=== PATIENT | female | born 1985 | race African-American/Black ===

== ENCOUNTER 2024-01-13 19:14 | Inpatient (IN) | payer OTHER ==
[~2024-01-13] VITALS: Ht 157.5 cm; Wt 49.9 kg
[2024-01-13 20:47] LABS: BASOPHILS % (AUTO) 0.5 % (0.0-2.0); EOSINOPHILS % (AUTO) 0.2 % (0.0-7.0); HEMATOCRIT 33.7 % (31.2-41.9); HEMOGLOBIN 11.7 g/dL (10.9-14.3); LYMPHOCYTES # (AUTO) 1.6 K/uL (0.8-4.8); LYMPHOCYTES % (AUTO) 19.7 % (20.5-51.5); MEAN CORPUSCULAR HEMOGLOBIN 31.5 uug (24.7-32.8); MEAN CORPUSCULAR HGB CONC 35 g/dL (32.3-35.6); MEAN CORPUSCULAR VOLUME 90.5 fL (75.5-95.3); MONOCYTES # (AUTO) 0.3 K/uL (0.1-1.30); MONOCYTES % (AUTO) 3.7 % (0.0-11.0); NEUTROPHILS # (AUTO) 6.2 K/uL (1.8-8.9); NEUTROPHILS % (AUTO) 75.9 % (38.5-71.5); PLATELET COUNT (AUTO) 409 K/uL (179-408); RED BLOOD CELL COUNT(AUTO) 3.73 MIL/uL (3.63-4.92); RED CELL DISTRIBUTION WIDTH 14.2 % (12.3-17.7); WHITE BLOOD COUNT (AUTO) 8.1 K/uL (3.8-11.8)
[2024-01-13 21:03] LABS: BILIRUBIN,TOTAL 0.7 mg/dL (0.2-1.0); CALCIUM 9.8 mg/dL (8.5-10.1); CREATININE 0.9 mg/dL (0.6-1.3); POTASSIUM 4.1 mmol/L (3.5-5.1); TOTAL PROTEIN, SERUM 8.3 g/dL (6.4-8.2)
[2024-01-13 21:07] LABS: DIFFERENTIAL COMMENT 1
[2024-01-13] MEDS ORDERED: METO5TAB7 PO (21:39)
[2024-01-13] MEDS ORDERED: BUME2TAB8 PO (21:39)
[2024-01-13] MEDS ORDERED: HYDR-4209 PO (21:39)
[2024-01-13] MEDS ORDERED: INSU3INS6 SQ (21:39)
[2024-01-13] MEDS ORDERED: EMPA10TA PO (21:39)
[2024-01-13] MEDS ORDERED: WARF-68 PO ×2 (21:39)
[2024-01-13] MEDS ORDERED: CALC355O18 PO (21:39)
[2024-01-13] MEDS ORDERED: METH-806 PO (21:39)
[2024-01-13] MEDS ORDERED: AMMO225L7 TP (21:39)
[2024-01-13] MEDS ORDERED: WARF-58 PO (21:39)
[2024-01-13] MEDS ORDERED: RIOC2.5T PO (21:39)
[2024-01-13] MEDS ORDERED: ASPI81TA31 PO (21:39)
[2024-01-13] MEDS ORDERED: GABA-536 PO (21:39)
[2024-01-13] MEDS ORDERED: FERR325T23 PO (21:39)
[2024-01-13] MEDS ORDERED: ERGO500040 PO (21:39)
[2024-01-13] MEDS ORDERED: DOCU100C36 PO (21:39)
[2024-01-13] MEDS ORDERED: INSU100I26 SQ (21:39)
[2024-01-13] MEDS ORDERED: MACI10TA PO (21:39)
[2024-01-13] MEDS ORDERED: GLUC3SPR NS (21:39)
[2024-01-13] MEDS ORDERED: POTA-88 PO (21:39)
[2024-01-13] MEDS ORDERED: INSU100I34 SQ ×2 (21:39)
[2024-01-13] MEDS ORDERED: ENOX60DI8 SQ (21:39)
[2024-01-13] MEDS ORDERED: PANTOPRAZOLE SODIUM 40 MG VIAL ONE (22:21)
[2024-01-13] MEDS: PANTOPRAZOLE SODIUM 40 MG VIAL IV ONE (22:26)
[2024-01-13 23:10] LABS: *BLOOD, URINE 3+ (NEGATIVE); *COLOR,URINE RED (YELLOW); *KETONES,URINE 4+ (NEGATIVE); LEUKOCYTE ESTERASE ,URINE 3+ (NEGATIVE); NITRITE, URINE POSITIVE (NEGATIVE)
[2024-01-13 23:15] LABS: *BILIRUBIN,URIN 3+ (NEGATIVE); *PROTEIN,URINE 3+ (NEGATIVE); UGLUCOSE 3+ (NEGATIVE)
[2024-01-13 23:17] LABS: *URINE HCG, QUAL NEGATIVE (NEGATIVE)
[2024-01-13 23:29] LABS: *AMPHETAMINE, URINE POSITIVE (NEGATIVE); *BARBITURATE, URINE NEGATIVE (NEGATIVE); *BENZODIAZEPINE, URINE NEGATIVE (NEGATIVE); *CANNABINOID, URINE POSITIVE (NEGATIVE); *COCCAINE, URINE NEGATIVE (NEGATIVE); *OPIATE, URINE NEGATIVE (NEGATIVE); *PHENCYCLIDINE SCREEN,URINE NEGATIVE (NEGATIVE)
[2024-01-13 23:34] LABS: FENTANYL, URINE NEGATIVE (NEGATIVE)
[2024-01-14 00:08] LABS: *CLARITY,URINE CLOUDY (CLEAR); BACTERIA,URINE MANY /HPF (NONE SEEN); RBC,URINE TNTC /HPF (0-3); SQUAMOUS EPITHELIAL CELL,UR FEW /HPF (NONE SEEN); WBC,URINE TNTC /HPF (0-3)
[2024-01-14] MEDS ORDERED: KETOROLAC TROMETHAMINE 30 MG INJ ONE (00:45)
[2024-01-14] MEDS ORDERED: ONDANSETRON 4 MG/2 ML VIAL ONE (00:45)
[2024-01-14] MEDS: ONDANSETRON 4 MG/2 ML VIAL IV ONE (00:54)
[2024-01-14] MEDS: KETOROLAC TROMETHAMINE 30 MG INJ IVP ONE (00:54)
[2024-01-14] MEDS ORDERED: PHYTONADIONE 10 MG/1 ML AMPUL ONE (05:14)
[2024-01-14] MEDS: PHYTONADIONE 10 MG/1 ML AMPUL IM ONE (05:21)
[2024-01-14] MEDS ORDERED: DEXTROSE 50% 50 ML DISP.SYRIN IV PRN (05:45)
[2024-01-14] MEDS ORDERED: METHOCARBAMOL 500 MG TABLET PO SCH (07:00)
[2024-01-14] MEDS ORDERED: HYDROCODONE/APAP 5-325MG TABLET PO SCH (07:00)
[2024-01-14] MEDS ORDERED: GABAPENTIN 400 MG CAPSULE PO SCH (07:00)
[2024-01-14] MEDS ORDERED: Medication Not On Formulary EA (Calcium Carb/Mag Hydrox/Simeth (Mylanta Tonight 800-270- PO SCH (07:00)
[2024-01-14 07:47] LABS: HEMATOCRIT 30.1 % (31.2-41.9); HEMOGLOBIN 10.6 g/dL (10.9-14.3)
[2024-01-14] MEDS: BLOOD SUGAR DIAGNOSTIC 1 EACH STRIP VI SCH (08:26)
[2024-01-14] MEDS ORDERED: INSULIN NPH 1,000 UNITS/10 ML VIAL SQ ONE (08:30)
[2024-01-14] MEDS: INSULIN REGULAR, HUMAN 300 UNIT/3 ML VIAL SQ PRN (08:35)
[2024-01-14] MEDS ORDERED: RIOCIGUAT 2.5 MG PO SCH (09:00)
[2024-01-14] MEDS ORDERED: Medication Not On Formulary EA (Bumetanide 2 MG) PO SCH (09:00)
[2024-01-14] MEDS ORDERED: Empagliflozin (Jardiance) 10 MG) PO SCH (09:00)
[2024-01-14 09:30] VITALS: BP 120/71; TEMP 97.5; O2SAT 93
[2024-01-14] MEDS: PANTOPRAZOLE SODIUM 40 MG VIAL IV SCH (09:40)
[2024-01-14] MEDS: DOCUSATE SODIUM 100 MG CAPSULE PO SCH (09:41)
[2024-01-14] MEDS: ACETAMINOPHEN 325 MG TABLET PO PRN (09:41)
[2024-01-14] MEDS ORDERED: WARF4TAB72 PO (10:03)
[2024-01-14] MEDS ORDERED: WARF-58 PO (10:03)
[2024-01-14] MEDS ORDERED: MAG HYDROX/AL HYDROX/SIMETH 30 ML LIQUID UDC PO PRN (10:15)
[2024-01-14] MEDS: AMMONIUM LACTATE 12% LOTION 225 GM BOTTLE TP SCH (10:27)
[2024-01-14] MEDS: OPSUMIT 10 MG PO SCH (10:27)
[2024-01-14] MEDS: ADEMPAS 2.5 MG PO SCH (10:27)
[2024-01-14] MEDS: BUMETANIDE 1 MG TABLET PO SCH (10:30)
[2024-01-14 13:03] LABS: THYROID STIMULATING HORMONE 0.86 mIU/mL (0.358-3.740)
[2024-01-14] MEDS: CEFTRIAXONE 1 G in IV DEXTROSE 5% 50 ML IV SCH (13:13)
[2024-01-14 15:00] VITALS: BP 76/42; TEMP 97.7; O2SAT 98
[2024-01-14 15:10] LABS: HEMATOCRIT 25.7 % (31.2-41.9); HEMOGLOBIN 9.1 g/dL (10.9-14.3)
[2024-01-14] MEDS ORDERED: IOHEXOL 300MG/ML 100 ML INFUS..BTL ONE (16:46)
[2024-01-14] MEDS ORDERED: SWABABLE VALVE TRANSFER SET EA MC ONE (16:46)
[2024-01-14] MEDS ORDERED: IV NORMAL SALINE 250 ML IV ONE (16:47)
[2024-01-14] MEDS: POTASSIUM CHLORIDE 20 MEQ TAB.PRT.SR PO SCH (17:32)
[2024-01-14 18:00] VITALS: BP 84/49; TEMP 97.7; O2SAT 94
[2024-01-14] MEDS: MAGNESIUM HYDROXIDE 30 ML LIQUID UDC PO PRN (20:13)
[2024-01-14 21:12] LABS: BASOPHILS # (AUTO) 0.1 K/UL (0.0-0.2); BASOPHILS % (AUTO) 0.6 % (0.0-2.0); EOSINOPHILS # (AUTO) 0.1 K/uL (0.0-0.7); HEMATOCRIT 27.9 % (31.2-41.9); HEMOGLOBIN 9.8 g/dL (10.9-14.3); LYMPHOCYTES # (AUTO) 2.1 K/uL (0.8-4.8); LYMPHOCYTES % (AUTO) 24.1 % (20.5-51.5); MEAN CORPUSCULAR HEMOGLOBIN 32.1 uug (24.7-32.8); MEAN CORPUSCULAR HGB CONC 35 g/dL (32.3-35.6); MEAN CORPUSCULAR VOLUME 91.9 fL (75.5-95.3); MONOCYTES # (AUTO) 0.7 K/uL (0.1-1.30); MONOCYTES % (AUTO) 7.8 % (0.0-11.0); NEUTROPHILS # (AUTO) 5.7 K/uL (1.8-8.9); NEUTROPHILS % (AUTO) 66.5 % (38.5-71.5); PLATELET COUNT (AUTO) 357 K/uL (179-408); RED BLOOD CELL COUNT(AUTO) 3.04 MIL/uL (3.63-4.92); RED CELL DISTRIBUTION WIDTH 14.2 % (12.3-17.7); WHITE BLOOD COUNT (AUTO) 8.6 K/uL (3.8-11.8)
[2024-01-14 21:17] LABS: DIFFERENTIAL COMMENT 1
[2024-01-14 23:16] VITALS: BP 73/39
[2024-01-14] MEDS: IV NS 1000 ML 1,000 ML IV ONE (23:45)
[2024-01-15] VITALS (10 sets, daily range): BP systolic 75–88; BP diastolic 39–53; TEMP 97.4–98.4; O2SAT 95–100
[2024-01-15] MEDS: IV NS 1000 ML 1,000 ML IV PRN (00:58)
[2024-01-15] MEDS: [UNRECOGNIZED DRUG - OTHER] PO SCH (08:25)
[2024-01-15] MEDS: JARDIANCE 10 MG PO SCH (08:25)
[2024-01-15 08:28] LABS: CALCIUM 6.9 mg/dL (8.5-10.1); CREATININE 0.7 mg/dL (0.6-1.3); PHOSPHOROUS 2.5 mg/dL (2.5-4.9); POTASSIUM 3.7 mmol/L (3.5-5.1)
[2024-01-15 08:37] LABS: BASOPHILS % (AUTO) 0.4 % (0.0-2.0); EOSINOPHILS # (AUTO) 0.1 K/uL (0.0-0.7); EOSINOPHILS % (AUTO) 1.5 % (0.0-7.0); LYMPHOCYTES # (AUTO) 1.5 K/uL (0.8-4.8); LYMPHOCYTES % (AUTO) 22.7 % (20.5-51.5); MEAN CORPUSCULAR HGB CONC 36 g/dL (32.3-35.6); MEAN CORPUSCULAR VOLUME 90.1 fL (75.5-95.3); MONOCYTES # (AUTO) 0.3 K/uL (0.1-1.30); MONOCYTES % (AUTO) 4.9 % (0.0-11.0); NEUTROPHILS # (AUTO) 4.6 K/uL (1.8-8.9); NEUTROPHILS % (AUTO) 70.5 % (38.5-71.5); PLATELET COUNT (AUTO) 295 K/uL (179-408); RED CELL DISTRIBUTION WIDTH 14.2 % (12.3-17.7); WHITE BLOOD COUNT (AUTO) 6.5 K/uL (3.8-11.8)
[2024-01-15 08:41] LABS: HEMATOCRIT 20.6 % (31.2-41.9); HEMOGLOBIN 7.3 g/dL (10.9-14.3); RED BLOOD CELL COUNT(AUTO) 2.29 MIL/uL (3.63-4.92)
[2024-01-15 10:07] LABS: *IMMUNOGLOBULIN G, SERUM 959 mg/dL (586-1602); IMMUNOGLOBULIN A, SERUM 333 mg/dL (87-352); IMMUNOGLOBULIN M, SERUM 119 mg/dL (26-217)
[2024-01-15] MEDS ORDERED: GADOTERATE MEGLUMINE 5 MMOL/10 ML VIAL IV ONE (15:34)
[2024-01-15] MEDS: HEPARIN SODIUM,PORCINE 5,000 UNITS/ML VIAL SQ SCH (16:59)
[2024-01-16 06:00] VITALS: BP 90/48; TEMP 97.9; O2SAT 96
[2024-01-16] MEDS: PANTOPRAZOLE SODIUM 40 MG TABLET.DR PO SCH (06:35)
[2024-01-16 07:51] VITALS: BP 89/47; TEMP 98.3; O2SAT 95
[2024-01-16 08:12] LABS: BASOPHILS % (AUTO) 0.3 % (0.0-2.0); EOSINOPHILS # (AUTO) 0.1 K/uL (0.0-0.7); EOSINOPHILS % (AUTO) 1.1 % (0.0-7.0); HEMATOCRIT 25.8 % (31.2-41.9); HEMOGLOBIN 9.1 g/dL (10.9-14.3); LYMPHOCYTES # (AUTO) 1.6 K/uL (0.8-4.8); LYMPHOCYTES % (AUTO) 25.3 % (20.5-51.5); MEAN CORPUSCULAR HEMOGLOBIN 31.7 uug (24.7-32.8); MEAN CORPUSCULAR HGB CONC 36 g/dL (32.3-35.6); MEAN CORPUSCULAR VOLUME 89.3 fL (75.5-95.3); MONOCYTES # (AUTO) 0.2 K/uL (0.1-1.30); MONOCYTES % (AUTO) 3.7 % (0.0-11.0); NEUTROPHILS # (AUTO) 4.5 K/uL (1.8-8.9); NEUTROPHILS % (AUTO) 69.6 % (38.5-71.5); PLATELET COUNT (AUTO) 169 K/uL (179-408); RED BLOOD CELL COUNT(AUTO) 2.88 MIL/uL (3.63-4.92); WHITE BLOOD COUNT (AUTO) 6.4 K/uL (3.8-11.8)
[2024-01-16 08:23] LABS: DIFFERENTIAL COMMENT 1
[2024-01-16 08:31] LABS: CALCIUM 8.1 mg/dL (8.5-10.1); CREATININE 0.8 mg/dL (0.6-1.3); MAGNESIUM 1.9 mg/dL (1.8-2.4); PHOSPHOROUS 3.2 mg/dL (2.5-4.9); POTASSIUM 3.2 mmol/L (3.5-5.1)
[2024-01-16 09:08] LABS: IRON, SERUM 37 ug/dL (50-175)
[2024-01-16 09:11] LABS: FERRITIN 47 ng/mL (8-252)
[2024-01-16 11:27] VITALS: BP 89/48; TEMP 98.7; O2SAT 94
[2024-01-16] MEDS ORDERED: POTASSIUM CHLORIDE 20 MEQ TAB.PRT.SR PO ONE (12:00)
[2024-01-16 12:06] LABS: FOLATE (FOLIC ACID), SERUM 12.1 ng/mL (>3.0)
[2024-01-16 16:16] VITALS: BP 88/48; TEMP 98.2; O2SAT 97
[2024-01-16] MEDS ORDERED: HEPARIN/D5W DRIP 500 ML IV PRN (17:00)
[2024-01-16 23:12] VITALS: BP 87/48; TEMP 98.6; O2SAT 99
[2024-01-17 00:41] VITALS: BP 87/40; TEMP 98.5; O2SAT 100
[2024-01-17 07:18] LABS: BASOPHILS % (AUTO) 0.5 % (0.0-2.0); EOSINOPHILS # (AUTO) 0.1 K/uL (0.0-0.7); EOSINOPHILS % (AUTO) 1.3 % (0.0-7.0); HEMATOCRIT 24.1 % (31.2-41.9); HEMOGLOBIN 8.6 g/dL (10.9-14.3); LYMPHOCYTES # (AUTO) 1.4 K/uL (0.8-4.8); LYMPHOCYTES % (AUTO) 24.4 % (20.5-51.5); MEAN CORPUSCULAR HEMOGLOBIN 32.2 uug (24.7-32.8); MEAN CORPUSCULAR HGB CONC 36 g/dL (32.3-35.6); MONOCYTES # (AUTO) 0.2 K/uL (0.1-1.30); MONOCYTES % (AUTO) 4.2 % (0.0-11.0); NEUTROPHILS % (AUTO) 69.6 % (38.5-71.5); PLATELET COUNT (AUTO) 286 K/uL (179-408); RED BLOOD CELL COUNT(AUTO) 2.67 MIL/uL (3.63-4.92); RED CELL DISTRIBUTION WIDTH 15.3 % (12.3-17.7); WHITE BLOOD COUNT (AUTO) 5.8 K/uL (3.8-11.8)
[2024-01-17 07:20] LABS: CALCIUM 8.1 mg/dL (8.5-10.1); CARBON DIOXIDE 27 mmol/L (21-32); CHLORIDE 101 mmol/L (98-107); CREATININE 0.6 mg/dL (0.6-1.3); GLUCOSE 226 mg/dL (74-106); POTASSIUM 4.3 mmol/L (3.5-5.1); SODIUM SERUM 134 mmol/L (136-145); UREA NITROGEN, BLOOD 7 mg/dL (7-18)
[2024-01-17 07:29] LABS: DIFFERENTIAL COMMENT 1
[2024-01-17 08:19] VITALS: BP 89/48; TEMP 97.8; O2SAT 100
[2024-01-17 12:10] VITALS: BP 77/31; TEMP 98.4; O2SAT 99
[2024-01-17] MEDS: SOD FERRIC GLUC COMPLX/SUCROSE 125 MG in IV NORMAL SALINE 100 ML IV SCH (14:46)
[2024-01-17 16:51] VITALS: BP 90/60; TEMP 98.3; O2SAT 94
[2024-01-17 20:00] VITALS: BP 84/47; TEMP 97.7; O2SAT 96
[2024-01-17] MEDS: INSULIN GLARGINE,HUM 300 UNITS/3 ML CARTRIDGE SQ SCH (20:43)
[2024-01-18 00:26] VITALS: BP 101/51; TEMP 98.1; O2SAT 98
[2024-01-18 04:20] VITALS: BP 88/51; TEMP 98.2; O2SAT 98
[2024-01-18 07:23] LABS: BASOPHILS % (AUTO) 0.6 % (0.0-2.0); EOSINOPHILS # (AUTO) 0.1 K/uL (0.0-0.7); EOSINOPHILS % (AUTO) 1.9 % (0.0-7.0); HEMATOCRIT 26.2 % (31.2-41.9); HEMOGLOBIN 9.3 g/dL (10.9-14.3); LYMPHOCYTES # (AUTO) 1.4 K/uL (0.8-4.8); LYMPHOCYTES % (AUTO) 25.4 % (20.5-51.5); MEAN CORPUSCULAR HEMOGLOBIN 32.2 uug (24.7-32.8); MEAN CORPUSCULAR HGB CONC 35 g/dL (32.3-35.6); MONOCYTES # (AUTO) 0.2 K/uL (0.1-1.30); MONOCYTES % (AUTO) 4.3 % (0.0-11.0); NEUTROPHILS # (AUTO) 3.8 K/uL (1.8-8.9); NEUTROPHILS % (AUTO) 67.8 % (38.5-71.5); PLATELET COUNT (AUTO) 269 K/uL (179-408); RED BLOOD CELL COUNT(AUTO) 2.89 MIL/uL (3.63-4.92); RED CELL DISTRIBUTION WIDTH 14.9 % (12.3-17.7); WHITE BLOOD COUNT (AUTO) 5.5 K/uL (3.8-11.8)
[2024-01-18 07:28] LABS: CALCIUM 8.3 mg/dL (8.5-10.1); CARBON DIOXIDE 24 mmol/L (21-32); CHLORIDE 104 mmol/L (98-107); CREATININE 0.6 mg/dL (0.6-1.3); GLUCOSE 177 mg/dL (74-106); POTASSIUM 4.2 mmol/L (3.5-5.1); SODIUM SERUM 136 mmol/L (136-145); UREA NITROGEN, BLOOD 5 mg/dL (7-18)
[2024-01-18 07:41] VITALS: BP 91/54; TEMP 97.6; O2SAT 99
[2024-01-18 07:48] LABS: DIFFERENTIAL COMMENT 1
[2024-01-18 09:07] LABS: ALBUMIN 3.1 g/dL (2.9-4.4); ALPHA-1-GLOBULIN 0.2 g/dL (0.0-0.4); ALPHA-2-GLOBULIN 0.7 g/dL (0.4-1.0); BETA GLOBULIN 1.2 g/dL (0.7-1.3); GAMMA GLOBULIN 0.9 g/dL (0.4-1.8); GLOBULIN, TOTAL 3.1 g/dL (2.2-3.9); M-SPIKE Not Observed g/dL (Not Observed)
[2024-01-18 11:46] VITALS: BP 90/43; TEMP 98.1; O2SAT 98
[2024-01-18 16:00] VITALS: BP 80/42; TEMP 98.3; O2SAT 98
[2024-01-18 20:00] VITALS: BP 80/43; TEMP 98.8; O2SAT 98
[2024-01-18] MEDS ORDERED: HEPARIN/D5W DRIP 500 ML IV PRN (20:15)
[2024-01-18] MEDS: INSULIN GLARGINE,HUM 300 UNITS/3 ML CARTRIDGE SQ SCH (20:54)
[2024-01-18] MEDS: HEPARIN SODIUM,PORCINE 5,000 UNITS/ML VIAL SQ SCH (21:56)
[2024-01-19] MEDS: TEMAZEPAM 7.5 MG CAPSULE PO ONE (01:12)
[2024-01-19 06:00] VITALS: BP 100/61; TEMP 98.4; O2SAT 100
[2024-01-19] MEDS: CEphaleXIN 500 MG CAPSULE PO SCH (09:42)
[2024-01-19 11:42] VITALS: BP 96/51; TEMP 97.7; O2SAT 97
[2024-01-19] MEDS: ONDANSETRON 4 MG/2 ML VIAL IV PRN (15:33)
[2024-01-19 16:34] VITALS: BP 84/44; TEMP 97.8; O2SAT 100
[2024-01-19 20:30] VITALS: BP 90/46; TEMP 97.6; O2SAT 98
[2024-01-20 05:50] VITALS: BP 90/51; TEMP 97.9; O2SAT 100
[2024-01-20 09:25] LABS: BASOPHILS # (AUTO) 0.1 K/UL (0.0-0.2); BASOPHILS % (AUTO) 0.9 % (0.0-2.0); EOSINOPHILS # (AUTO) 0.1 K/uL (0.0-0.7); EOSINOPHILS % (AUTO) 1.6 % (0.0-7.0); HEMATOCRIT 28.2 % (31.2-41.9); HEMOGLOBIN 9.5 g/dL (10.9-14.3); LYMPHOCYTES # (AUTO) 1.6 K/uL (0.8-4.8); LYMPHOCYTES % (AUTO) 18.6 % (20.5-51.5); MEAN CORPUSCULAR HEMOGLOBIN 31.8 uug (24.7-32.8); MEAN CORPUSCULAR HGB CONC 34 g/dL (32.3-35.6); MEAN CORPUSCULAR VOLUME 94.4 fL (75.5-95.3); MONOCYTES # (AUTO) 0.4 K/uL (0.1-1.30); MONOCYTES % (AUTO) 4.6 % (0.0-11.0); NEUTROPHILS # (AUTO) 6.2 K/uL (1.8-8.9); NEUTROPHILS % (AUTO) 74.3 % (38.5-71.5); PLATELET COUNT (AUTO) 264 K/uL (179-408); RED BLOOD CELL COUNT(AUTO) 2.99 MIL/uL (3.63-4.92); WHITE BLOOD COUNT (AUTO) 8.4 K/uL (3.8-11.8)
[2024-01-20 09:27] LABS: DIFFERENTIAL COMMENT 1
[2024-01-20 09:31] LABS: CALCIUM 8.3 mg/dL (8.5-10.1); CARBON DIOXIDE 23 mmol/L (21-32); CHLORIDE 102 mmol/L (98-107); CREATININE 0.6 mg/dL (0.6-1.3); GLUCOSE 150 mg/dL (74-106); POTASSIUM 4.4 mmol/L (3.5-5.1); SODIUM SERUM 134 mmol/L (136-145); UREA NITROGEN, BLOOD 5 mg/dL (7-18)
[2024-01-20 12:00] VITALS: BP 90/43; TEMP 98.4
[2024-01-20 12:04] VITALS: BP 90/43; TEMP 98.4; O2SAT 98
[2024-01-20 16:51] VITALS: BP 97/43; TEMP 98.5; O2SAT 98
[2024-01-20 20:13] VITALS: BP 74/34; TEMP 98.9
[2024-01-21 06:38] VITALS: BP 95/43; TEMP 97.3; O2SAT 97
[2024-01-21 09:19] LABS: BASOPHILS % (AUTO) 0.5 % (0.0-2.0); EOSINOPHILS # (AUTO) 0.1 K/uL (0.0-0.7); EOSINOPHILS % (AUTO) 1.6 % (0.0-7.0); HEMATOCRIT 29.1 % (31.2-41.9); HEMOGLOBIN 9.5 g/dL (10.9-14.3); LYMPHOCYTES # (AUTO) 1.2 K/uL (0.8-4.8); LYMPHOCYTES % (AUTO) 18.2 % (20.5-51.5); MEAN CORPUSCULAR HEMOGLOBIN 31.5 uug (24.7-32.8); MEAN CORPUSCULAR HGB CONC 33 g/dL (32.3-35.6); MEAN CORPUSCULAR VOLUME 96.4 fL (75.5-95.3); MONOCYTES # (AUTO) 0.3 K/uL (0.1-1.30); MONOCYTES % (AUTO) 4.8 % (0.0-11.0); NEUTROPHILS # (AUTO) 4.9 K/uL (1.8-8.9); NEUTROPHILS % (AUTO) 74.9 % (38.5-71.5); PLATELET COUNT (AUTO) 259 K/uL (179-408); RED BLOOD CELL COUNT(AUTO) 3.02 MIL/uL (3.63-4.92); RED CELL DISTRIBUTION WIDTH 17.1 % (12.3-17.7); WHITE BLOOD COUNT (AUTO) 6.6 K/uL (3.8-11.8)
[2024-01-21 09:21] LABS: DIFFERENTIAL COMMENT 1
[2024-01-21 09:34] LABS: CALCIUM 8.5 mg/dL (8.5-10.1); CREATININE 0.7 mg/dL (0.6-1.3); POTASSIUM 4.4 mmol/L (3.5-5.1)
[2024-01-21 11:10] VITALS: BP 95/47; TEMP 98.4; O2SAT 100
[2024-01-21 15:14] VITALS: BP 97/54; TEMP 98.4; O2SAT 97
[2024-01-21] MEDS: WARFARIN SODIUM 5 MG TABLET PO SCH (22:23)
[2024-01-21 22:59] VITALS: BP 93/48; TEMP 97.8; O2SAT 99
[2024-01-21] MEDS: ENOXAPARIN SODIUM 60 MG/0.6 ML DISP.SYRIN SQ ONE (23:11)
[2024-01-22 05:57] VITALS: BP 89/46; TEMP 98.9; O2SAT 97
[2024-01-22 07:22] LABS: BASOPHILS % (AUTO) 0.3 % (0.0-2.0); EOSINOPHILS # (AUTO) 0.1 K/uL (0.0-0.7); EOSINOPHILS % (AUTO) 1.8 % (0.0-7.0); HEMATOCRIT 23.7 % (31.2-41.9); HEMOGLOBIN 7.9 g/dL (10.9-14.3); LYMPHOCYTES # (AUTO) 1.1 K/uL (0.8-4.8); LYMPHOCYTES % (AUTO) 23.4 % (20.5-51.5); MEAN CORPUSCULAR HEMOGLOBIN 32.1 uug (24.7-32.8); MEAN CORPUSCULAR HGB CONC 33 g/dL (32.3-35.6); MEAN CORPUSCULAR VOLUME 96.7 fL (75.5-95.3); MONOCYTES # (AUTO) 0.3 K/uL (0.1-1.30); MONOCYTES % (AUTO) 6.9 % (0.0-11.0); NEUTROPHILS # (AUTO) 3.1 K/uL (1.8-8.9); NEUTROPHILS % (AUTO) 67.6 % (38.5-71.5); PLATELET COUNT (AUTO) 276 K/uL (179-408); RED CELL DISTRIBUTION WIDTH 18.5 % (12.3-17.7); WHITE BLOOD COUNT (AUTO) 4.5 K/uL (3.8-11.8)
[2024-01-22 07:37] LABS: DIFFERENTIAL COMMENT 1; RED BLOOD CELL COUNT(AUTO) 2.45 MIL/uL (3.63-4.92)
[2024-01-22 07:39] LABS: CALCIUM 8.2 mg/dL (8.5-10.1); CREATININE 0.7 mg/dL (0.6-1.3); POTASSIUM 4.3 mmol/L (3.5-5.1)
[2024-01-22] MEDS: ENOXAPARIN SODIUM 60 MG/0.6 ML DISP.SYRIN SQ SCH (08:37)
[2024-01-22] MEDS ORDERED: ENOX40DI SQ (08:44)
[2024-01-22] MEDS ORDERED: WARF-58 PO (08:44)
[2024-01-22 11:32] VITALS: BP 99/55; TEMP 98.7; O2SAT 100
== END 2024-01-22 18:00 | disposition home or self-care (01) | DRG 530 ==
LOC: ER 19:17 → TELE3 01-14 08:17 → MEDSURG3 01-18 12:22
PROVIDERS: ATTEND Nurse Practitioner Acute Care
PROC: 05HB33Z Insertion of Infusion Device into Right Basilic Vein, Percutaneous Approach (ICD-10-PCS; principal; 2024-01-15)
PROC: 30233N1 Transfusion of Nonautologous Red Blood Cells into Peripheral Vein, Percutaneous Approach (ICD-10-PCS; principal; 2024-01-15)
DX: C54.1 Malignant neoplasm of endometrium (principal); D68.32 Hemorrhagic disorder due to extrinsic circulating anticoagulants; I27.20 Pulmonary hypertension, unspecified; E87.1 Hypo-osmolality and hyponatremia; D62 Acute posthemorrhagic anemia; B95.1 Streptococcus, group B, as the cause of diseases classified elsewhere; E11.65 Type 2 diabetes mellitus with hyperglycemia; F12.10 Cannabis abuse, uncomplicated; I42.9 Cardiomyopathy, unspecified; Z86.74 Personal history of sudden cardiac arrest; D25.0 Submucous leiomyoma of uterus; D25.1 Intramural leiomyoma of uterus; D75.839 Thrombocytosis, unspecified; F15.10 Other stimulant abuse, uncomplicated; F17.210 Nicotine dependence, cigarettes, uncomplicated; N84.0 Polyp of corpus uteri; N93.9 Abnormal uterine and vaginal bleeding, unspecified; R04.0 Epistaxis; T45.515A Adverse effect of anticoagulants, initial encounter; Y92.89 Other specified places as the place of occurrence of the external cause; Z86.718 Personal history of other venous thrombosis and embolism; R31.0 Gross hematuria; N80.122 Deep endometriosis of left ovary; N39.0 Urinary tract infection, site not specified; Z95.1 Presence of aortocoronary bypass graft; Z86.16 Personal history of COVID-19; I25.10 Atherosclerotic heart disease of native coronary artery without angina pectoris; Z79.4 Long term (current) use of insulin
CPT/HCPCS: 36415; 71250; 71260; 82378; 82746; 82784; 83550; 83735; 84100; 84155; 84165; 84443; 84703; 85018; 85025; 85610; 85730; 86334; 86850; 86900; 86901; 86920; A4663; A9575; C9113; G0378; J0696; J1644; J1650; J1815; J1885; J2405; J2916; J3430; J7040; P9016; Q9967